=== PATIENT | male | born 1945 | race Caucasian/White ===

== ENCOUNTER 2017-09-21 19:00 | Emergency (ER) | payer MEDICARE, OTHER ==
[~2017-09-21] VITALS: Ht 180.3 cm; Wt 97.5 kg
[~2017-09-21 19:00] MED LIST: AUGMENTIN 875875 M1 PO; COUMADIN 5 MG TA5 M1 PO; FINASTERIDE5 MG; LOVENOX SQ; PREDNISONE 20 M20 M1 PO; TAMSULOSIN HCL0.4 M1; TESTOSTERONE; VENTOLIN HFA INH8 GM IH; VICODIN 5-5001 EACH PO; ZPAK PO
[2017-09-21 19:13] VITALS: BP 170/93
[2017-09-21] MEDS ORDERED: MYSOLINE50 MG (19:17)
[2017-09-21] MEDS ORDERED: NORTRIPTYLINE H10 M1 (19:17)
[2017-09-21] MEDS ORDERED: OMEPRAZOLE40 MG (19:17)
[2017-09-21] MEDS ORDERED: COZAAR 50 MG TA50 M2 (19:18)
[2017-09-21] MEDS ORDERED: COLACE100 MG (19:18)
[2017-09-21] MEDS ORDERED: IBUPROFEN 800800 M1 (19:18)
== END 2017-09-21 19:51 | disposition home or self-care (01) ==
LOC: M.ERS 19:00
DX: R04.0 Epistaxis (principal)